=== PATIENT | male | born 2000 | race Two or more races ===

== ENCOUNTER → 2021-05-10 | Outpatient (CLI) | payer BC ==
[2021-05-10 08:50] LABS: HEMATOCRIT. 43.4 % (42.0-52.0); MEAN CORPUSCULAR HEMOGLOBIN 29.4 pg (28.0-32.0); MEAN CORPUSCULAR VOLUME 85.2 fL (80.0-94.0); MEAN PLATELET VOLUME 7.7 fl (7.4-10.4); PLATELET 368 x1000/uL (130-400); RED BLOOD CELL COUNT 5.09 mill/uL (4.7-6.1); RED CELL DISTRIBUTION WIDTH 13.7 % (11.6-14.6)
[2021-05-10 08:51] LABS: BASOPHILS % 0.9 % (0.0-2.0); EOSINOPHILS % 5.3 % (0.0-5.0); LYMPHOCYTES % 41.8 % (20.0-50.0); MONOCYTES % 9.3 % (2.0-8.0); NEUTROPHILS % 42.7 % (40.0-76.0)
[2021-05-10 09:02] LABS: CHLORIDE 109 mEq/L (98-107)
[2021-05-11 04:10] LABS: ESTRADIOL 5.6 pg/mL (7.6-42.6); FOLICLE STIMULATING HORMONE 14.7 mIU/mL (1.5-12.4); PROLACTIN 8.9 ng/mL (4.0-15.2)
== END | disposition home or self-care (01) ==
LOC: LAB 06:57
DX: E29.1 Testicular hypofunction (principal); N52.9 Male erectile dysfunction, unspecified
CPT/HCPCS: 36415; 80053; 82670; 82728; 83001; 83002; 84146; 84403; 85025